=== PATIENT | male | born 1965 | race Asian ===

== ENCOUNTER 2017-12-24 16:08 | Emergency (ER) | payer OTHER, SELFPAY ==
[2017-12-24 16:10] VITALS: BMI 23.6
--- NOTE | 2017-12-24 16:12 | DI.RAD.S_ITS ---
PROCEDURE: XR HAND RT MIN 3V INDICATIONS: injury TECHNIQUE: 3 views of the hand(s) acquired. COMPARISON: None. FINDINGS: Bones: There is are partially obscured by large bandage dressings. No fractures or dislocations. Carpal bones are normally aligned. No suspicious bony lesions. Osteoarthritis basilar joint of the thumb. Soft tissues: No suspicious soft tissue calcifications. Presumed lacerations of the fingers with dressings in place. IMPRESSION: No displaced fractures seen. Nondisplaced linear fractures could be obscured by overlying dressings. Repeat images advised when clinically feasible. Dictated by: Randolph Nichols M.D. on 12/24/2017 at 16:29 Approved by: Randolph Nichols M.D. on 12/24/2017 at 16:31
[2017-12-24 16:13] VITALS: BP 150/86; PULSE 83; RESP 18; O2SAT 98
--- NOTE | 2017-12-24 16:41 | ED_ITS ---
HPI - Extremity Injury (Upper) General Chief Complaint: Extremity Injury, Upper Stated Complaint: Crush Injury Time Seen by Provider: 12/24/17 16:16 Source: patient Mode of arrival: EMS Limitations: no limitations History of Present Illness HPI narrative: patient is a [id number] male arrived by EMS after he had a boat haul crush his fingers On his right hand.. Patient washed his hand and placed wet gauze over the wounds prior to arrival. He arrived with dressings in place. Patient states that he is up-to-date on his tetanus. No other injuries reported from the event. Related Data Previous Rx's Medication Instructions Recorded cephalexin 500 mg PO QID 10 Days #40 cap 12/24/17 hydrocodone-acetaminophen 1 tab PO Q4-6H PRN #10 tab 12/24/17 Allergies Allergy/AdvReac Type Severity Reaction Status Date / Time aspirin Allergy Verified 12/24/17 16:10 Review of Systems Constitutional Denies fever(s) Cardiovascular Denies chest pain and Denies dyspnea Respiratory Denies dyspnea Gastrointestinal Gastrointestinal: Denies abdominal pain, Denies nausea and Denies vomiting Musculoskeletal Comments: Crush injury to fingers of right hand Integumentary/Breasts Comments: laceration of the fingers of the right hand Neurologic Comments: some tingling to the middle and ring finger of his right hand Hematologic/Lymphatic Denies easy bleeding and Denies easy bruising PFSH Social History Smoking Status: Never smoker Exam Initial Vital Signs Initial Vital Signs: Vital Signs Pulse Rate 83 12/24/17 16:13 Respiratory Rate 18 12/24/17 16:13 Blood Pressure 150/86 H 12/24/17 16:13 Pulse Oximetry 98 12/24/17 16:13 Const General: cooperative, healthy appearing and comfortable Nutritional Appearance: well nourished Orientation: alert, awake, oriented x3 and not confused Resp Effort & Inspection: normal respiratory effort and able to speak in complete sentences Cardio Pulses: radial pulses present Skin Other: Patient with laceration to the middle and ring finger. Volar aspect over the pads of the finger. Avulsion of almost the entire pads of both the middle and ring finger. No active bleeding. Neuro Other: sensation intact to the ring and middle finger of his right hand distally. Extrem Other: Full range of motion of the MCP PIP and the IP joint of the ring and middle finger of the right hand. Rest of the right hand unremarkable. Psych Appearance: grossly normal, well kempt and not disheveled Procedures Laceration Repair Laceration 1: Site: upper extremity Side (If applicable): right Size (cm): 3 Description: flap and irregular Depth: involves muscle layer Local Anesthetic: lidocaine 1% Amount of anesthesia used (mL): 5 Pre-repair: wound explored, irrigated extensively and deep structures intact Skin layer closed with: nylon Size (cm): 5-0 Number of sutures: 8 Technique: simple, interrupted Laceration 2: Site: upper extremity Side (If applicable): right Size (cm): 4 Description: flap and irregular Depth: involves muscle layer Local Anesthetic: lidocaine 1% Amount of anesthesia used (mL): 5 Pre-repair: wound explored and irrigated extensively Skin layer closed with: nylon Size (cm): 5-0 Number of sutures: 10 Technique: simple, interrupted Course Orders Ordered: ED Orders 12/24/17 16:12 XR hand RT min 3V Stat 12/24/17 16:40 XR hand RT min 3V Stat Discontinued Medications Cefazolin Sodium/Dextrose (Ancef) 2 gm in 100 mls @ 200 mls/hr IV NOW ONE Stop: 12/24/17 17:09 Last Infusion: 12/24/17 17:30 Dose: 0 mls/hr Admin: 12/24/17 16:58 Dose: 200 mls/hr Lidocaine HCl (Xylocaine 1%) 20 ml SUBCUT NOW ONE Stop: 12/24/17 17:51 Last Admin: 12/24/17 18:18 Dose: 20 ml Vital Signs - 8 hr 12/24/17 16:13 12/24/17 17:48 Pulse Rate 83 70 Respiratory Rate 18 14 Blood Pressure [Right Arm] 150/86 H 129/78 H Pulse Oximetry 98 98 MDM - Extremity Injury (Upper) Imaging Data x-ray hand: Radiologist's impression: PROCEDURE: XR HAND RT MIN 3V INDICATIONS: crush injury right hand TECHNIQUE: 3 views of the hand(s) acquired. COMPARISON: None. FINDINGS: Dressings have been removed and prone imaging is improved. Bones: No fractures or dislocations. Carpal bones are normally aligned. No suspicious bony lesions. Soft tissues: No suspicious soft tissue calcifications. Soft tissue defects are noted over the distal phalanges of the middle and ring fingers. IMPRESSION: Soft tissue injuries distal phalanges, no underlying fracture or dislocation. Dictated by: Randolph Nichols M.D. on 12/24/2017 at 16:57 Approved by: Randolph Nichols M.D. on 12/24/2017 at 17:00 [facility] Narrative Medical decision making narrative: No fractures on the x-rays. Patient is neurovascularly intact. Patient is up-to-date on his tetanus. 3 cm laceration on the ring finger of his right hand and a 4 cm laceration on the middle finger of his right hand. These are flap/avulsions of the pads of the fingers. I did discuss with the patient the concern that I have with this type of injury for the overlying skin and the potential that it may not survive given the lack of blood supply with this type of injury. The flaps were sutured to provide a by a dressing for the underlying structures. It does not involve the tendons. The edges of the wounds were fairly ragged. After the sutures were placed fingers were bandaged. Patient was given antibiotics here in the emergency department. Will send home with antibiotics. Was also sent home with pain medication. He was given return precautions. He was given care instructions. He expressed understanding and agreement with plan. Discharge Plan Departure Patient Disposition: Home, Self-Care Clinical Impression: Laceration of finger Discharge Date/Time: 12/24/17 20:13 Interventions: ED Discharge Assessment Last Done: 12/24/17 20:06 Instructions: How to Care for a Laceration After Repair, DI for Laceration Repair Activity Restrictions/Additional Instructions: take all the medications as instructed. Keep the wound covered for the next 24 hr. You can shower like normal do not soak her hand anything. The stitches do need to be removed in approximately 10 days. return to the emergency department for any new or worsening symptoms. Prescriptions: New hydrocodone-acetaminophen 5-325 mg tablet 1 tab PO Q4-6H PRN (Reason: pain) Qty: 10 RF: 0 cephalexin 500 mg capsule 500 mg PO QID 10 Days Qty: 40 RF: 0
[2017-12-24] MEDS: CEFAZOLIN 2 GM/100 ML FROZ.PIGGY IV (16:58)
[2017-12-24 17:48] VITALS: BP 129/78; PULSE 70; RESP 14; O2SAT 98
[2017-12-24] MEDS: LIDOCAINE 1% 20 ML INJ SUBCUT (18:18)
== END 2017-12-24 20:13 | disposition home or self-care (01) ==
PROVIDERS: Emergency Provider Emergency Medicine
DX: S61.214A Laceration without foreign body of right ring finger without damage to nail, initial encounter (principal); S61.212A Laceration without foreign body of right middle finger without damage to nail, initial encounter; W23.0XXA Caught, crushed, jammed, or pinched between moving objects, initial encounter
CPT/HCPCS: 12002; 73130; 96365; 96372; 99283; J0690